=== PATIENT | female | born 1945 | race Caucasian/White ===

== ENCOUNTER → 2017-01-25 | Day surgery (SDC) | payer MEDICARE, OTHER ==
[~2017-01-25] MED LIST: Lactated Ringers 1,000 ML IV SCH; Propofol 200 MG/20 ML SDV IV ONE
[2017-01-25 09:41] VITALS: BP 145/74
--- NOTE | 2017-01-28 07:18 | OR ---
DATE OF OPERATION: 01/25/2017 PREOPERATIVE DIAGNOSIS: PERSISTENT GASTROESOPHAGEAL REFLUX DISEASE. POSTOPERATIVE DIAGNOSIS: PERSISTENT GASTROESOPHAGEAL REFLUX DISEASE. SURGEON: Luis M Jaimes MD PROCEDURE: ESOPHAGOGASTRODUODENOSCOPY WITH BIOPSIES X5, ZOHRA. ANESTHESIA: YARDAGE ESTIMATOR due to GERD. COMPLICATIONS: None. SPECIMEN: 1. Antral biopsy x2. 2. Antral ZOHRA. 3. Distal esophageal biopsy x3. FINDINGS: 1. Full-length EGD. 2. Antral gastritis with erosions. 3. Moderate hiatal hernia with erosive reflux esophagitis. RECOMMENDATIONS: The patient will be placed on proton pump therapy and consideration for hiatal hernia repair given. INDICATIONS: The patient has been having some ongoing issues with reflux, with any Valsalva feels pressure in her lower chest. Dr. Cui sent her for EGD. DESCRIPTION OF PROCEDURE: The patient was prepped and draped, placed in the left lateral decubitus position. A lubricated Olympus gastroscope was inserted over a bit and easily intubated in the esophagus. Esophageal lining was unremarkable until its distal portion. There was a moderate-sized hiatal hernia present with reflux esophagitis noted. Some ulcerations are present as well. No definite Riley's changes are seen and no stricturing or Schatzki's rings. The scope was advanced into the stomach through the pylorus into the third portion of the duodenum. The second and third portion of duodenum and duodenal bulb were benign. The scope was brought back into the stomach and retroflexed. The hernia was easily visualized from below. The upper fundus and cardia were unremarkable. Upon straightening, the rest of the fundus appeared benign. The patient does have some mild chronic gastritis of the antrum with some active changes and erosions present in its distal portion. Two biopsies and a ZOHRA were taken. The scope was brought back up into the distal esophagus. Three biopsies of the affected portions of the distal esophagus were biopsied without complication. Air was then suctioned. The scope was removed without complication. NISREEN/BLANCO /[id number]
== END ==
LOC: CC.SDS 08:01
PROVIDERS: ATTEND Family Medicine
DX: K22.10 Ulcer of esophagus without bleeding (principal); K44.9 Diaphragmatic hernia without obstruction or gangrene; K29.50 Unspecified chronic gastritis without bleeding; K31.9 Disease of stomach and duodenum, unspecified; F32.9 Major depressive disorder, single episode, unspecified; E87.6 Hypokalemia; Z88.1 Allergy status to other antibiotic agents; Z88.8 Allergy status to other drugs, medicaments and biological substances; Z91.018 Allergy to other foods; Z79.899 Other long term (current) drug therapy; Z90.49 Acquired absence of other specified parts of digestive tract; Z90.710 Acquired absence of both cervix and uterus; Z98.890 Other specified postprocedural states; Z72.0 Tobacco use
CPT/HCPCS: 00740; 43239; 87081; J2704; J7120; 88305

== ENCOUNTER 2018-02-17 15:54 | Emergency (ER) | payer MEDICARE, OTHER ==
[2018-02-17] MEDS ORDERED: traMADol 50 MG Tab PO ONE (15:55)
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
[2018-02-17 16:35] LABS: CHLORIDE,CL 109 mEq/L (98-106); SODIUM,NA 143 mEq/L (136-145)
[2018-02-17] MEDS ORDERED: Take Home: traMADol 50 MG, 4 Tab Pack PO ONE (17:28)
[2018-02-17 19:03] VITALS: BP 135/76
== END 2018-02-17 17:45 | disposition home or self-care (01) ==
LOC: CC.ED 15:54
DX: S00.03XA Contusion of scalp, initial encounter (principal); S50.02XA Contusion of left elbow, initial encounter; S20.212A Contusion of left front wall of thorax, initial encounter; V89.2XXA Person injured in unspecified motor-vehicle accident, traffic, initial encounter; Z88.8 Allergy status to other drugs, medicaments and biological substances; Z91.018 Allergy to other foods
CPT/HCPCS: 36415; 70450; 72125; 80053; 81001; 82150; 85025; 85610; 99284; A9270-GY

== ENCOUNTER 2019-06-23 11:30 | Emergency (ER) | payer MEDICARE, MEDICAID ==
[2019-06-23] MEDS: fentaNYL 100 MCG/2 ML SDV IVPUSH ONE ×2 (12:14→13:48)
[2019-06-23 12:54] VITALS: BP 137/46; PULSE 80
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
[2019-06-23] MEDS: Ondansetron 4 MG/2 ML SDV IVPUSH ONE (13:47)
== END 2019-06-23 13:58 ==
LOC: CC.ED 11:30
DX: S82.101A Unspecified fracture of upper end of right tibia, initial encounter for closed fracture (principal); S82.401A Unspecified fracture of shaft of right fibula, initial encounter for closed fracture; K21.9 Gastro-esophageal reflux disease without esophagitis; Z87.891 Personal history of nicotine dependence; Z88.8 Allergy status to other drugs, medicaments and biological substances; Z91.018 Allergy to other foods; Z88.1 Allergy status to other antibiotic agents; Z79.899 Other long term (current) drug therapy; W18.00XA Striking against unspecified object with subsequent fall, initial encounter
CPT/HCPCS: 73560-RT; 96374; 96375; 96376; 99284; 99284-25; J2405; J3010

== ENCOUNTER 2019-11-01 18:16 | Emergency (ER) | payer MEDICARE, MEDICAID ==
[2019-11-01 18:19] VITALS: PULSE 90
[2019-11-01] MEDS ORDERED: Lidocaine 1% 20 ML MDV INJECT ONE (18:30)
[2019-11-01] MEDS ORDERED: ceFAZolin 1 GM Vial IVPUSH ONE (18:37)
--- NOTE | 2019-11-01 18:40 | EDM.PDOC ---
ED HPI GENERAL MEDICAL PROBLEM - General Chief Complaint: Laceration Stated Complaint: lac Time Seen by Provider: 11/01/19 18:36 Source of Information: Reports: Patient History Limitations: Reports: No Limitations - History of Present Illness INITIAL COMMENTS - FREE TEXT/NARRATIVE: Patient is a 74 year old female that presents to the ER. Patient reports that she was outside and tripped over the garden hose. Patient reports that she fell with her right knee down in the grass. Patient reports having right knee laceration. She had a knee replacement of that knee in June. Patient denies hitting her head, loc, n, v, vision changes, or any other pain complaints. Onset: Today Onset Date: 11/01/19 Onset Time: 17:30 Location: Reports: Lower Extremity, Right Severity: Mild Improves with: Reports: None Worsens with: Reports: None Associated Symptoms: Denies: Confusion, Chest Pain, Cough, cough w sputum, Diaphoresis, Fever/Chills, Headaches, Loss of Appetite, Malaise, Nausea/Vomiting , Rash, Seizure, Shortness of Breath, Syncope, Weakness Right Knee Pain Score (Numeric/FACES): 9 - Related Data Allergies Allergy/AdvReac Type Severity Reaction Status Date / Time celecoxib [From Celebrex] Allergy Stomach Verified 11/01/19 18:19 Upset meloxicam [From Mobic] Allergy Stomach Verified 11/01/19 18:19 Upset propoxyphene HCl Allergy Rash Verified 11/01/19 18:19 [From Darvon] tetracycline [Tetracycline] Allergy Rash Verified 11/01/19 18:19 tomato Allergy Cannot Verified 11/01/19 18:19 Remember Home Meds: Home Meds Pantoprazole [ProTONIX] 40 mg PO DAILY 06/23/19 [History] Past Medical History - Past Health History Medical/Surgical History: Denies Medical/Surgical History Cardiovascular History: Reports: High Cholesterol Gastrointestinal History: Reports: GERD RADIOLOGY ORDERLY History: Reports: Neurological History: Reports: Other (See Below) Psychiatric History: Reports: Depression - Past Surgical History HEENT Surgical History: Reports: Cataract Surgery Female Surgical History: Reports: Hysterectomy Musculoskeletal Surgical History: Reports: Knee Replacement, Shoulder Replacement Social & Family History - Family History Family Medical History: Noncontributory - Tobacco Use Smoking Status *Q: Never Smoker - Caffeine Use Caffeine Use: Reports: Coffee - Recreational Drug Use Recreational Drug Use: No ED ROS GENERAL - Review of Systems Review Of Systems: See Below Constitutional: Reports: No Symptoms HEENT: Reports: No Symptoms Respiratory: Reports: No Symptoms Cardiovascular: Reports: No Symptoms Endocrine: Reports: No Symptoms GI/Abdominal: Reports: No Symptoms : Reports: No Symptoms Musculoskeletal: Reports: Joint Pain (right knee pain mild), Joint Swelling ( right knee) Skin: Reports: Wound (Right knee laceration) Neurological: Reports: No Symptoms Psychiatric: Reports: No Symptoms Hematologic/Lymphatic: Reports: No Symptoms Immunologic: Reports: No Symptoms ED EXAM, SKIN/RASH Exam: See Below Exam Limited By: No Limitations General Appearance: Alert, WD/WN, No Apparent Distress Eye Exam: Bilateral Eye: Normal Inspection, PERRL Ears: Normal External Exam, Normal Canal, Hearing Grossly Normal, Normal TMs Nose: Normal Inspection, Normal Mucosa, No Blood Throat/Mouth: Normal Inspection, Normal Lips, Normal Teeth, Normal Gums, Normal Oropharynx, Normal Voice, No Airway Compromise Head: Atraumatic, Normocephalic Neck: Normal Inspection, Supple, Non-Tender, Full Range of Motion Respiratory/Chest: No Respiratory Distress, Lungs Clear, Normal Breath Sounds, No Accessory Muscle Use, Chest Non-Tender Cardiovascular: Normal Peripheral Pulses, Regular Rate, Rhythm, No Edema, No Gallop, No JVD, No Murmur, No Rub Peripheral Pulses: 2+: Popliteal (L), Popliteal (R), Posterior Tibial (L), Posterior Tibial (R), Dorsalis Pedis (L), Dorsalis Pedis (R) GI/Abdominal: Soft, Non-Tender Back Exam: Normal Inspection, Full Range of Motion Extremities: Normal Range of Motion, No Pedal Edema, Normal Capillary Refill, Joint Swelling (mild right). No: Limited Range of Motion Neurological: Alert, Oriented Psychiatric: Normal Affect, Normal Mood Skin: Warm, Dry, Normal Color, No Rash, Wound/Incision (Right knee laceration.) Location, Skin: Lower Extremity, Right ED SKIN PROCEDURES - Laceration/Wound Repair Right Anterior Knee Appearance: Subcutaneous Distal NVT: Neuro & Vascular Intact, No Tendon Injury Anesthetic Type: Local Local Anesthesia - Lidocaine (Xylocaine): 1% Plain Local Anesthetic Volume: 4cc Skin Prep: Chlorhexidine (Hibiciens) Saline Irrigation (cc's): 100 Exploration/Debridement/Repair: Wound Explored, In a Bloodless Field, Explored to Base, Moderate Debridement, Foreign Material Removed (grass), Wound Margins Revised, Other (No orthpedic hardware seen on wound exploration. ) Closed with: [place] Lac/Wound length In cm: 5.5 # of Sutures: 8 Tetanus Status Addressed: Yes Complications: No - Splinting Right Lower Extremity Pre-Procedure NV Status: Normal Post-Procedure NV Status: Normal Splint Design: Knee Immobilizer Applied & Form Fitted By: Nurse Provider Post-Splint Application NV Check: NV Status Normal, Good Position Complications: No Course - Vital Signs Last Recorded V/S: Last Vital Signs Temp 98.0 F 11/01/19 18:16 Pulse 90 11/01/19 18:16 Resp 16 11/01/19 18:16 BP Pulse Ox 96 11/01/19 18:16 - Orders/Labs/Meds Orders: Active Orders 24 hr Category Date Time Status Knee 3V Rt [CR] Stat Exams 11/01/19 18:29 Taken Meds: Medications Discontinued Medications Generic Name Dose Route Start Last Admin Trade Name Freq PRN Reason Stop Dose Admin Cefazolin Sodium 1 gm 11/01/19 18:37 11/01/19 18:42 Ancef IVPUSH 11/01/19 18:38 1 gm ONETIME ONE Administration Lidocaine HCl 20 ml 11/01/19 18:30 11/01/19 18:42 Xylocaine 1% INJECT 11/01/19 18:31 20 ml ONETIME ONE Administration Neomycin/Polymyxin/Bacitracin 1 each 11/01/19 19:03 Triple Antibiotic Oint TOP 11/01/19 19:04 ONETIME ONE - Radiology Interpretation Free Text/Narrative:: Right knee xray: No fracture, no dislocation. hardware visualized and appears intact. Departure - Departure Time of Disposition: 19:09 Disposition: Home, Self-Care 01 Condition: Fair Clinical Impression: Laceration of knee Qualifiers: Encounter type: initial encounter Laterality: right Qualified Code(s): S81.011A - Laceration without foreign body, right knee, initial encounter Knee contusion Qualifiers: Encounter type: initial encounter Laterality: right Qualified Code(s): S80.01XA - Contusion of right knee, initial encounter - Discharge Information *PRESCRIPTION DRUG MONITORING PROGRAM REVIEWED*: Not Applicable *COPY OF PRESCRIPTION DRUG MONITORING REPORT IN PATIENT DELL: Not Applicable Instructions: Laceration Care, Adult, Sutures, Hussein, or Adhesive Wound Closure Referrals: Carol Mills PA [Primary Care Provider] - Forms: ED Department Discharge Additional Instructions: Followup with your primary care provider to have hussein removed in about 10 days Return to the ER for worsening of condition or any emergent concerns such as redness, drainage, fever, vomiting Followup with your nee surgeon as needed: For large knee swelling, bruising, or pain, or other concerns. Rest Ice Elevate Wash the knee with soap and water gently twice a day, rinse, pat dry Keep clean: Keep covered if helps keep clean Tylenol for pain Knee immobilizer as needed Sepsis Event Note - Evaluation Sepsis Screening Result: No Definite Risk - Focused Exam Vital Signs: Vital Signs Temp Pulse Resp Pulse Ox 11/01/19 18:16 98.0 F 90 16 96 Date Exam was Performed: 11/01/19 Time Exam was Performed: 19:09 - My Orders Last 24 Hours: My Active Orders 11/01/19 18:29 Knee 3V Rt [CR] Stat - Assessment/Plan Last 24 Hours: My Active Orders 11/01/19 18:29 Knee 3V Rt [CR] Stat Plan: PLEASE SEE RN NOTE FOR PFSH
[2019-11-01] MEDS ORDERED: Bacitracin/Neomycin/Polymyxin B Oint 0.9 GM U/D Packet TOP ONE (19:03)
== END 2019-11-01 19:18 | disposition home or self-care (01) ==
LOC: CC.ED 18:16
DX: S81.021A Laceration with foreign body, right knee, initial encounter (principal); K21.9 Gastro-esophageal reflux disease without esophagitis; Z88.8 Allergy status to other drugs, medicaments and biological substances; Z88.1 Allergy status to other antibiotic agents; Z91.018 Allergy to other foods; Z79.899 Other long term (current) drug therapy
CPT/HCPCS: 12002; 12032; 73562-RT; 96374; 99283; 99283-25; J0690; J2001

== ENCOUNTER → 2021-12-22 | Day surgery (SDC) | payer MEDICARE, OTHER ==
[~2021-12-22] MED LIST changes: +Ketamine 200 MG/20 ML MDV ONE; -Propofol 200 MG/20 ML SDV IV ONE; +Propofol 200 MG/20 ML SDV ONE; +fentaNYL 50 MCG/ML SDV ONE
[2021-12-22 13:08] VITALS: BP 111/78; PULSE 80
== END ==
LOC: CC.SDS 09:56
PROVIDERS: ATTEND Family Medicine
DX: K31.A11 Gastric intestinal metaplasia without dysplasia, involving the antrum (principal); K22.10 Ulcer of esophagus without bleeding; K21.9 Gastro-esophageal reflux disease without esophagitis; K31.89 Other diseases of stomach and duodenum; K29.60 Other gastritis without bleeding; K25.9 Gastric ulcer, unspecified as acute or chronic, without hemorrhage or perforation; K44.9 Diaphragmatic hernia without obstruction or gangrene; I10 Essential (primary) hypertension; F32.A Depression, unspecified; M54.50 Low back pain, unspecified; E78.5 Hyperlipidemia, unspecified; M81.8 Other osteoporosis without current pathological fracture; Z88.8 Allergy status to other drugs, medicaments and biological substances; Z91.018 Allergy to other foods; Z79.899 Other long term (current) drug therapy; Z90.49 Acquired absence of other specified parts of digestive tract; Z98.890 Other specified postprocedural states
CPT/HCPCS: 76705; 87081; 88305; J2704; J3010; J7120